=== PATIENT | female | born 1960 | race Asian ===

== ENCOUNTER → 2021-04-22 | Outpatient (CLI) | payer BC | LOC: MAMMO 12:29 | PROVIDERS: ATTEND Obstetrics & Gynecology | DX: Z12.31 Encounter for screening mammogram for malignant neoplasm of breast (principal) | CPT/HCPCS: 77067 ==

== ENCOUNTER → 2024-03-14 | Outpatient (REF) | payer MEDICARE | LOC: MAMMO 10:38 | PROVIDERS: ATTEND Obstetrics & Gynecology | DX: Z12.31 Encounter for screening mammogram for malignant neoplasm of breast (principal) | CPT/HCPCS: 77067 ==